=== PATIENT | female | born 1940 | race Caucasian/White ===

== ENCOUNTER → 2016-12-11 | Outpatient (CLI) | payer OTHER ==
[~2016-12-11] VITALS: Ht 162.6 cm; Wt 109.0 kg
[~2016-12-11] MED LIST: AMBIEN 5 MG TABL5 M1 PO; CIPRO250 M1 PO; DIOVAN160 MG PO; DOLOPHINE HCL10 MG PO; FLEXERIL PO; KEFLEX500 MG PO; MEDROLDOSEPACK PO; METHADONE HCL 110 M1 PO; MOBIC15 MG PO; MOBIC7.5 MG PO; NEURONTIN 300300 M1 PO; NOLVADEX10 MG PO; PERCOCET 5-3251 EACH PO; PERCOCET 7.5-31 EACH PO; PERCODAN TABLE1 EACH PO; SYNTHROID175 MCG PO; TESSALON PERLE100 M1 PO; WATER PILL
--- NOTE | ~2016-12-11 | HPC ---
[facility] [place] [address] PAIN MANAGEMENT CONSULTATION Name: ARELY BEATTY Room #: REG [facility].#: [id number] Admission: 12/11/16 Attend Phys: Itz Perry MD Discharge: Date of : 44 Report #: [id number] THIS REPORT FOR: //name// CC: Itz Andre DATE OF SERVICE: 12/11/2016 PRIMARY CARE PHYSICIAN: Kervin Andre MD FOLLOWUP COMPLAINT: "I am still having some pain in my tailbone area." FOLLOWUP HISTORY: The patient is a 76-year-old female who has been followed in the pain clinic in the past because of lumbar radiculopathy. She has undergone epidural steroid injection and gleaned significant benefit from that. She feels that her pain medicines are helpful. She has not fallen since we saw her last. She rates her pain as a 10. She has noted some pain with standing, walking as well as with lying down. She describes it as aching, involves both of her legs, left and right. She denies any changes in bowel or bladder function. She denies any changes in her mentation associated with her medication use. PHYSICAL EXAMINATION: Blood pressure 129/70, pulse 68, respiratory rate 16, room air saturation 100%. The patient has pain and discomfort as described above. She has pain in her low back and legs bilaterally. She describes chronic achy discomfort and rates the intensity as a 10/10 especially when standing, walking and lying down. She notes that the pain in the tailbone area is problematic. She sometimes notes that when she sits on the toilet. IMPRESSION: 1. History of lumbar radiculopathy, improved with an epidural steroid injection at the last visit. 2. Chronic bilateral knee pain. 3. Obesity. RECOMMENDATION: We discussed treatment options with the patient. We will continue with her current medical regimen of oxycodone 5 mg 1 p.o. q.i.d. as needed. Methadone 10 mg b.i.d. Flexeril 10 mg t.i.d. She will call us and may be considered an epidural steroid injection at the next visit. We would like to thank you for letting us participate in her care. We hope she continues to improve. By: [id number] Itz Perry MD /[facility]
[2016-12-11 11:17] VITALS: BP 129/70
== END | disposition home or self-care (01) ==
LOC: PAIN 06:35
DX: M54.16 Radiculopathy, lumbar region (principal); M25.562 Pain in left knee; M25.561 Pain in right knee; E66.9 Obesity, unspecified; Z87.891 Personal history of nicotine dependence

== ENCOUNTER → 2017-03-12 | Outpatient (CLI) | payer OTHER ==
[~2017-03-12] VITALS: Ht 152.4 cm; Wt 103.1 kg
--- NOTE | ~2017-03-12 | HPC ---
[facility] [place] [address] PAIN MANAGEMENT CONSULTATION Name: ARELY BEATTY Room #: REG [facility] Nelly.#: [id number] Admission: 03/12/17 Attend Phys: Itz Perry MD Discharge: Date of : 42 Report #: [id number] THIS REPORT FOR: //name// CC: Itz Andre MD DATE OF SERVICE: 03/12/2017 FOLLOWUP COMPLAINT: Things have been going okay. Here for medication renewal. FOLLOWUP HISTORY: The patient is a 76-year-old female who has been followed in the pain clinic. As you recall, she has significant problems with low back pain. She has found that medical management has been helpful. She has not had any complications from its use. She would like to have her medications refilled. She continues to rate her pain as a 7/10. She notes pain while standing, walking and lying down. She is sitting in a wheelchair when we spoke with her. PHYSICAL EXAMINATION: GENERAL: The patient is in a wheelchair. VITAL SIGNS: Blood pressure 112/69, pulse 74, respiratory rate 14, room air saturation 96%, height 5 feet, weight 227 pounds, BMI is 44. BACK: She continues to have pain and discomfort in her low back area. Has pain radiating down into her legs bilaterally. She has some discomfort in the tailbone area. IMPRESSION: 1. History of lumbar radiculopathy, improved with epidural steroid injection in the past. May consider an injection in the future. 2. Chronic bilateral knee pain. 3. Chronic tailbone pain. 4. Obesity. RECOMMENDATION: We will renew the patient's opioid medications. We again spoke with her regarding the limitations in opioid medication and new guidelines per the CDC. We will continue her current medical regimen. She will call us if she has any problems with it. She will consider an epidural steroid injection in the future. A script for methadone 10 mg 1 p.o. b.i.d. and Percocet 5/325, 120 tablets as well as Flexeril 10 mg 1 p.o. t.i.d. By: [id number] Itz Perry MD /
[2017-03-12 11:48] VITALS: BP 112/69
== END | disposition home or self-care (01) ==
LOC: PAIN 11:11
DX: Z76.0 Encounter for issue of repeat prescription (principal); M54.16 Radiculopathy, lumbar region; G89.29 Other chronic pain; M25.561 Pain in right knee; M25.562 Pain in left knee; M53.3 Sacrococcygeal disorders, not elsewhere classified; E66.09 Other obesity due to excess calories; Z79.891 Long term (current) use of opiate analgesic; Z98.890 Other specified postprocedural states; Z68.41 Body mass index [BMI] 40.0-44.9, adult; Z87.891 Personal history of nicotine dependence; Z88.0 Allergy status to penicillin; Z88.6 Allergy status to analgesic agent; Z88.2 Allergy status to sulfonamides; Z91.041 Radiographic dye allergy status

== ENCOUNTER → 2017-06-18 | Outpatient (CLI) | payer OTHER ==
[~2017-06-18] VITALS: Ht 160 cm; Wt 97.5 kg
[~2017-06-18] MED LIST changes: +NOLVADEX 10MG T10 M1 PO; +VERAPAMIL ER120 M1 PO
--- NOTE | ~2017-06-18 | HPC ---
[facility] [place] [address] [address] [place] [address] PAIN MANAGEMENT CONSULTATION Name: ARELY BEATTY Room #: REG WHIT[facility] Martínez#: [id number] Admission: 06/18/17 Attend Phys: Itz Perry MD Discharge: Date of : 42 Report #: [id number] THIS REPORT FOR: //name// CC: Itz Andre DATE OF SERVICE: 06/18/2017 FOLLOWUP COMPLAINT: Here for an epidural injection. FOLLOWUP HISTORY: The patient is a 76-year-old female who has been followed in the pain clinic. As you recall, she has lumbar radiculopathy. She has been treated on a long-term basis with a complex medication regimen for her chronic pain. She finds that opioids continue to be helpful. She states that she is taking them as prescribed. She states she is having no complications. She has pain, which is radiating down into her low back and down into her legs bilaterally in the L4-L5 distribution. She has undergone epidural steroid injection in the past and gleaned greater than 50% benefit from these. She has returned today for treatment. She rates her pain as an 8/10. PHYSICAL EXAMINATION: Blood pressure 145/64, pulse 60, respiratory rate 16, room air saturation 92%. Height 5 feet 3 inches, weight 215 pounds, BMI is 38. The patient has not fallen since we saw her last. RECOMMENDATION: The patient agrees to proceed. Risks and benefits of the procedure were again reviewed. Possible complications which could include but are not limited to infection, increased muscle soreness, headache, bleeding, spinal headache, nerve trauma were discussed and the patient elects to proceed. PROCEDURE NOTE: The patient was placed in the prone position. Fluoroscopy was used to identify the L4-L5 interspace. This area had been sterilely prepped with Betadine and infiltrated with 0.25% bupivacaine. Total of 80 mg Depo-Medrol, 40 mg triamcinolone and 2 mL of 0.25% bupivacaine was injected. The patient tolerated the procedure well. There were no complications. She remained in the pain clinic for an appropriate amount of time. She will follow up in the future as needed. <ELECTRONICALLY SIGNED> By: Itz Perry MD 07/01/17 0945 [id number] Itz Perry MD /[facility]
[2017-06-18 12:35] VITALS: BP 145/64
== END | disposition home or self-care (01) ==
LOC: PAIN 07:03
DX: M54.16 Radiculopathy, lumbar region (principal); G89.29 Other chronic pain; Z79.891 Long term (current) use of opiate analgesic; Z98.890 Other specified postprocedural states; Z87.891 Personal history of nicotine dependence; Z91.041 Radiographic dye allergy status; Z88.6 Allergy status to analgesic agent; Z88.2 Allergy status to sulfonamides; Z88.0 Allergy status to penicillin

== ENCOUNTER → 2017-09-15 | Outpatient (CLI) | payer OTHER ==
[~2017-09-15] VITALS: Ht 160 cm; Wt 98.3 kg
--- NOTE | ~2017-09-15 | HPC ---
[facility] [place] [address] PAIN MANAGEMENT CONSULTATION Name: ARELY BEATTY Room #: REG [facility] Martínez#: [id number] Admission: 09/15/17 Attend Phys: Itz Perry MD Discharge: Date of : 42 Report #: [id number] THIS REPORT FOR: //name// CC: Itz Andre MD DATE OF SERVICE: 09/15/2017 FOLLOWUP COMPLAINT: Here for medication renewal. FOLLOWUP HISTORY: The patient is a 76-year-old female who has been followed in the pain clinic for a number of years. As you recall, she continues to have pain and discomfort, which is problematic. She has undergone epidural steroid injections and gleaned benefits from these. She returns today indicating that her pain is a 6-7, at this juncture. She would like to have her medications refilled. Notes that she continues to have some pain and discomfort with standing, walking, and lying down. She notes that the pain is in the lower portion of her back and radiates down into both legs bilaterally. She has a chronic pulling sensation in the lower portion of her back, which sometimes is sharp. She feels that the medications that she is taking continue to be helpful. She has had no complications from their use. She states that she is taking them as prescribed. Keeps them in a guarded area. She does not have any problems with constipation nor confusion. Overall, these continue to be helpful and enable her to stay reasonably active. She would like to continue with the medication and has come today for renewal of her medications. ALLERGIES: SULFA, PENICILLIN, IODINE. CURRENT MEDICATIONS: Include oxycodone 5/325 one p.o. q.i.d. as needed, methadone 10 mg 1 p.o. b.i.d., Flexeril 10 mg 1 p.o. t.i.d. as needed, tamoxifen 10 mg daily, verapamil ER 120 mg b.i.d., Ambien 2.5 mg at bedtime, Synthroid 175 mcg daily, Neurontin 300 mg 1 p.o. daily. CLINICAL ASSESSMENT: 1. History of osteoarthritis involving her knees. 2. History of rheumatoid arthritis, not applicable: 3. Height 5 foot 3 inches, weight 216 pounds, BMI is 38. 4. Vital signs: Blood pressure 137/69, pulse 60, respiratory rate 20, room air saturation is 98%. 5. Pain intensity 6-7/10. 6. Fall risk. The patient uses a walker at home. She does monitor and tries to walk as carefully as possible at home. She has not fallen in the last 3 months. 7. The patient is not on a blood thinner. 8. Hypertension. The patient [place] [address] PAIN MANAGEMENT CONSULTATION Name: ARELY BEATTY Room #: REG [facility] Martínez#: [id number] Admission: 09/15/17 Attend Phys: Itz Perry MD Discharge: Date of : 42 Report #: [id number] 9. Opioid therapy greater than 6-week. The patient has a contract signed with pain clinic and only gets her medications from one source. 10. Risk assessment tool is low at 0/3. 11. Functional assessment tool . 12. Recreational drug use. The patient denies use of recreational drug use. Tobacco use: Former tobacco user, does not smoke and has not smoked in many years. Alcohol: The patient might drinks 3-4 alcoholic beverages per week. PHYSICAL EXAMINATION: GENERAL: The patient is a well-developed, somewhat obese white female. Appearance: The patient appears her stated age. Orientation: The patient is alert and oriented x 3. Affect: The patient's affect appears appropriate. HEENT: Normocephalic, atraumatic. Extraocular eye muscles intact. Hearing within normal limits. No nasal complaints. Moist buccal membranes. NECK: Without adenopathy. ABDOMEN: Protuberant. EXTREMITIES: Upper extremities, muscle strength is judged to be 5/5 in the upper extremities. Sensation within normal limits. MUSCULOSKELETAL: Normal alignment. Gait: The patient walks slow with a somewhat antalgic gait. Walks with use of a walker. Low back: The patient has some low back pain. Flexion and extension exacerbates the pain and discomfort in the low back area. Lower extremities, judged to be 5/5 for the major muscle groups. The patient has significant swelling in the lower extremities, which has been chronic over the years. IMPRESSION: 1. Chronic lumbar radiculopathy has improved with epidural steroid injection in the past. 2. Chronic bilateral knee pain. 3. Chronic tailbone pain. 4. Obesity, BMI of 42. 5. The patient rolls in a wheelchair and walks with a walker at home. RECOMMENDATIONS: We discussed treatment options with the patient. Risks and benefits of opioid use was again discussed. We have reviewed the problems with opioid medications in our communities. Number of ____ are having problems with narcotics and become addicted. The patient states that she has taken her medication as prescribed. Keeps her medications in a guarded area. Does not feel that she is having any problems with over sedation or mentation. She feels that her medications are adequately helping with her chronic pain and feels that she would be unable to maintain her current base activity of daily living without their use. We will renew her medications of Percocet 5/325, 120 tablets, Flexeril 10 mg 1 p.o. t.i.d. as well as methadone 1 p.o. b.i.d. A script for these medications have been written. The patient will call us if she [facility] [email or web address] [address] PAIN MANAGEMENT CONSULTATION Name: ARELY BEATTY Room #: REG [facility] Minerva#: [id number] Admission: 09/15/17 Attend Phys: Itz Perry MD Discharge: Date of : 42 Report #: [id number] has any problems with her medications. We would like to thank you for letting us participate in her care. We hope she continues to improve. <ELECTRONICALLY SIGNED> By: Itz Perry MD 10/08/17 0811 [id number] Itz Perry MD /[facility]
[2017-09-15 11:07] VITALS: BP 137/69
== END ==
LOC: PAIN 09-10 14:45
DX: M17.0 Bilateral primary osteoarthritis of knee (principal); R42 Dizziness and giddiness; Z91.81 History of falling

== ENCOUNTER → 2017-12-10 | Outpatient (CLI) | payer OTHER ==
[~2017-12-10] VITALS: Ht 160 cm; Wt 96.2 kg
--- NOTE | ~2017-12-10 | HPC ---
[facility] [address] [address] PAIN MANAGEMENT CONSULTATION Name: ARELY BEATTY Room #: REG [facility] Martínez#: [id number] Admission: 12/10/17 Attend Phys: Itz Perry MD Discharge: Date of : 42 Report #: [id number] THIS REPORT FOR: //name// CC: Itz Andre DATE OF SERVICE: 12/10/2017 FOLLOWUP COMPLAINT: "I fell a few days ago. I had an x-ray and they said that something may have been broken." FOLLOWUP HISTORY: The patient is a 77-year-old female who has been followed in the pain clinic because of chronic pain. The patient states that she fell on her buttocks. It was a hard floor. This was about a month ago. States that her primary care physician did an x-ray and there was possibility of a fracture noted. Overall, things have gotten somewhat better, but continued to be problematic. The patient continues to have some pain and discomfort, which radiates down into her buttocks. She has had fractured tailbone in the past. Denies any new bowel or bladder dysfunction. She notes that pain can be exacerbated by walking, standing, lying down. Medications and repositioning can be efficacious. The patient keeps her medications in a confined area. Feels that they are continuing to be helpful. It is mindful of the media. Review of opioids, their ability to cause addiction and their ability to become less effective because of tolerance. She feels that things are going reasonably well and would like to continue with her medications. She keeps them in a guarded area. No new problems with bowel or bladder function. ALLERGIES: SULFA, PENICILLIN, IODINE. CURRENT MEDICATIONS: Oxycodone 5/325 one p.o. q.i.d., methadone 10 mg b.i.d., Flexeril 10 mg p.o. t.i.d., tamoxifen 10 mg daily, verapamil ER 120 mg b.i.d., Ambien 2.5 mg at bedtime, Synthroid 1.75 mcg, Neurontin 300 mg p.o. daily. CLINICAL ASSESSMENT: 1. History of osteoarthritis involving her knees. 2. History of rheumatoid arthritis is not problematic. 3. Height 5 feet 3 inches, weight 212 pounds, BMI is 37.6. 4. Vital signs: Blood pressure 122/72, pulse 66, respiratory rate 16, room air saturation 98%. 5. Pain intensity 8/10. 6. Fall risk. The patient has fallen in the last 3 months and has been seen by her primary care physician. 7. Blood thinner. The patient is not on a blood thinning agent. 8. History of hypertension. The patient is being treated for hypertension. 9. Opioid therapy greater than 6 weeks. The patient is on an opioid contract and refused her medications [place] [address] PAIN MANAGEMENT CONSULTATION Name: ARELY BEATTY Room #: REG [facility] Martínez#: [id number] Admission: 12/10/17 Attend Phys: Itz Perry MD Discharge: Date of : 42 Report #: [id number] 10. Low risk assessment. 11. Functional assessment tool . 12. Functional or recreational drug use. The patient denies use of recreational drugs. 13. Tobacco: The patient denies use of tobacco. 14. Alcohol: The patient denies use of alcoholic beverages. PHYSICAL EXAMINATION: GENERAL: The patient is a well-developed, somewhat obese white female. She appears her stated age. She is alert and oriented. Speech is fluent. Affect, patient's affect appears appropriate. HEENT: Normocephalic, atraumatic. Extraocular eye muscles intact. Hearing was within normal limits. No nasal complaints. Mucous membranes are moist. NECK: Without adenopathy. CHEST: Clear to auscultation without rhonchi or rales. ABDOMEN: Protuberant. EXTREMITIES: Upper extremities. Muscle strength is judged to be 5/5 in the upper extremities. Sensation is within normal limits without deficit. MUSCULOSKELETAL: Without significant kyphosis, lordosis, or scoliosis. The patient is in a wheelchair. Walks at home with use of a walker. Complains of low back pain. Flexion and extension, left and right lateral bending can cause increased back and low buttocks area discomfort. The patient has some areas in the lower portion of her back near the sacrum where she feels pain and discomfort since her fall. IMPRESSION: 1. Chronic lumbar radicular pain improved after epidural steroid injection in the past. 2. Chronic bilateral knee pain. 3. Chronic tailbone pain -- fell to the floor and possible fracture per her report from the primary care physician. 4. Obesity, BMI of 37.6. 5. Wheelchair use. The patient uses a wheelchair and walks with a walker at home. RECOMMENDATIONS: We discussed treatment options with the patient. We will renew her medications. Risks and benefits of opioid medications again were discussed. The patient feels that they are helpful and enables her to engage in activities, she would not be able to without their use. A script for methadone 10 mg 1 p.o. b.i.d. has been written as well as cyclobenzaprine 10 mg 1 p.o. t.i.d. for spasms, Percocet 5/325 one p.o. or q.i.d. as needed. We would like [facility] [address] [place] [address] PAIN MANAGEMENT CONSULTATION Name: ARELY BEATTY Leonardo Room #: REG [facility] Martínez#: [id number] Admission: 12/10/17 Attend Phys: Itz Perry MD Discharge: Date of : 42 Report #: [id number] to thank you for letting us participate in her care. We hope she continues to improve. By: [id number] Itz Perry MD /nt
[2017-12-10 10:12] VITALS: BP 122/72
== END ==
LOC: PAIN 07:30
DX: M54.16 Radiculopathy, lumbar region (principal); G89.29 Other chronic pain; M25.561 Pain in right knee; M25.562 Pain in left knee; M53.3 Sacrococcygeal disorders, not elsewhere classified; E66.9 Obesity, unspecified; Z68.37 Body mass index [BMI] 37.0-37.9, adult; Z88.2 Allergy status to sulfonamides; Z88.0 Allergy status to penicillin; Z91.041 Radiographic dye allergy status

== ENCOUNTER → 2018-06-08 | Outpatient (CLI) | payer OTHER ==
[~2018-06-08] VITALS: Ht 162.6 cm; Wt 99.3 kg
--- NOTE | ~2018-06-08 | HPC ---
[facility] [address] [place] [address] PAIN MANAGEMENT CONSULTATION Name: ARELY BEATTY Leonardo Room #: REG WHITLEY Soliz#: [id number] Admission: 06/08/18 Attend Phys: Nichole Liao Discharge: Date of : 42 Report #: [id number] THIS REPORT FOR: //name// CC: Nichole Liao Kervin Andre DATE OF SERVICE: 06/08/2018 FOLLOWUP COMPLAINT: Low back pain with pain radiating down her legs, here for medication refill today. HISTORY OF PRESENT ILLNESS: This patient is a 77-year-old female who has been followed in the pain clinic for several years by Dr. Joaquin Perry. She has chronic low back pain. She tells me today that her pain has been increasing in the morning in her lower back, especially upon arising out of bed in the morning. She tells me it takes her a few feet of walking before it kind of eases up. She rates her pain today at 8/10, worse with standing and walking. She tells me also that she has been having some increase in her peripheral neuropathy feeling some shocks in her leg at various places and some increased burning in her feet. She tells me also that she is getting a lymphedema machine for the swelling in her legs. She does wear compression hose currently. She would like a refill of her methadone and her Percocet, which she thinks are beneficial having no problems with meditation or constipation with these medications. ALLERGIES: IODINE, CODEINE, SULFA, AND PENICILLIN. CURRENT LIST OF MEDICATIONS: Percocet 5/325 up to 4 times a day, methadone 10 mg twice a day, Flexeril 10 mg up to 3 times a day as needed, tamoxifen 10 mg daily, verapamil 120 mg twice a day, Ambien 2.5 mg at bedtime, Synthroid 175 mcg daily, gabapentin 300 mg twice a day. PQRS: 1. She has a history of osteoarthritis in her knees and legs and she has a history of rheumatoid arthritis, but is not being treated for currently. 2. Height is 5 feet 4 inches, her weight is 219, her BMI is 37.6. Vital signs: Blood pressure 152/71, pulse is 69, respirations 16, oxygen sat is 18. Her pain score is 8/10 today. 3. Fall risk, has no dizziness. Does need some help with walking and standing. She uses a walker and occasionally a wheelchair, but she has not fallen in the last 3 months. 4. She does not take any blood thinners, but does take medicines for hypertension. 5. Her opioid therapy is greater than 6 weeks; therefore, an opioid signed contract is on the chart. 6. Her risk assessment tool is low and her functional assessment is 16/70. [address] [address] PAIN MANAGEMENT CONSULTATION Name: ARELY BEATTY Leonardo Room #: REG CLLaz Soliz#: [id number] Admission: 06/08/18 Attend Phys: Nichole Liao Discharge: Date of : 42 Report #: [id number] 7. Recreational drug use. She denies, is a former smoker and occasionally drinks 2 alcoholic beverages a month. We did check the patient's [place], [place] prescription monitoring system. The patient seems to be filling appropriately from Dr. Jhony Perry on a monthly basis with no aberrant behavior noted. The patient tells me she safeguards all of her medications. PHYSICAL EXAMINATION: GENERAL: This patient is well-developed, white female. She is obese. She is here with a walker today. Her speech is fluent. Her affect is appropriate. HEENT: Normocephalic, atraumatic. Extraocular eye muscles are intact. Hearing is within normal limits. Mucous membranes are moist. NECK: Without adenopathy or JVD. ABDOMEN: Protuberant without abdominal pain. EXTREMITIES: Upper extremity strength judged to be 5/5 for all major muscle groups. Sensation is within normal limits in her upper extremities. MUSCULOSKELETAL: Without significant kyphosis, scoliosis or lordosis. She complains of low back pain and sharp tingly burning pain in her feet. She does have significant lymphedema present in her lower extremities, worse in the left than the right. IMPRESSION: 1. Chronic lumbar radicular pain. 2. Chronic bilateral knee pain. 3. Chronic tailbone pain. 4. Obesity. Body mass index is 37.6. We reviewed the fact that opiate medications are being used to provide analgesia adequate to support activities of daily living, not attempting to achieve a specific pain score on the 0-10 Visual Analog Scale. The current opiate medications are providing sufficient analgesia to allow the patient to participate in activities of daily living. The patient is not exhibiting any aberrant behavior suggestive of drug diversion. The patient is not having any adverse reactions to medications. The patient is not suffering from daytime somnolence or mental acuity changes. The patient is managing opiate-induced constipation with appropriate [id number]-hzm-phdozbm agents and dietary considerations. The patient was counseled on concern for caution with operating a motor vehicle while using opiate medications. A physical exam was performed and the patient's functional status was evaluated. All patients with back pain were advised against the bed rest greater than 4 days and were advised to return to normal activities. Pain score assessment was noted and the treatment plan was reviewed with the patient. All current medications, both prescribed and OTC were reviewed and reconciled on the electronic medical record. Tobacco screening was accomplished and smoking [facility] [address] [place] [address] PAIN MANAGEMENT CONSULTATION Name: ARELY BEATTY Room #: REG [facility]#: [id number] Admission: 06/08/18 Attend Phys: Nichole Liao Discharge: Date of : 42 Report #: [id number] cessation was advised when indicated. BMI was noted and diet/exercise modification was recommended for all patients following outside normal parameters. I reviewed with the patient today their responsibilities to safeguard prescription medications, reviewed their responsibility to utilize medications only as prescribed by the physician. They are to seek and receive pain medications only from 1 physician group ( [facility]). They are to use 1 pharmacy and keep the clinic informed if they change pharmacies. Their responsibilities include making followup visits in a timely fashion and to avoid abrupt discontinuation of medication usage. Their responsibilities further include bringing their medications (bottles from the pharmacy with residual pills) to the visit for possible confirmation of pill counts and the patient understands it is their responsibility to submit to random drug screens to ensure both that the medications prescribed are present, and that no other controlled substances are present. All prescriptions provided today were generated electronically. PLAN: 1. We discussed treatment options with the patient today. We will continue her current medications of methadone 10 mg twice daily, scripts were given for #60 for today, 4-week and 8-week and oxycodone 5/325, #120 for today, 4-week and 8-week release. The patient tells me that these medications are very helpful, we did in controlling her pain. We did talk about the CDC guidelines in great depth. She said Dr. Perry had talked to her about that in the past and he told her that she is at a level that we will not decrease or I did inform her her MME is 110, which the CDC guidelines are 90 milliequivalents of morphine or below. We will closely monitor her, but continue her current dosage. Since she has been showing benefits from this dose, we will monitor her on every 3-month basis and sooner if need be for her medications. 2. The patient does complain of increased low tailbone pain and increasing neuropathy in her feet. According to the records, it looks like she has had a lumbar epidural steroid injection at least 1 year ago; therefore, we discussed repeating that to see if this would help calm down some of this increasing pain. The patient was agreeable with this plan and will schedule an appointment in the near future with Dr. Perry. 3. We did also talk about the patient is on gabapentin 300 mg twice a day if we find that the epidural was not as beneficial as it has been in the past. We may consider increasing her gabapentin for her neuropathy pain in the future. 4. The patient is seen in collaboration with Dr. Joaquin Perry today. <ELECTRONICALLY SIGNED> By: Nichole Liao 06/09/18 0831 [id number] Nichole Liao /baltazar
[2018-06-08 12:39] VITALS: BP 152/71
== END ==
LOC: PAIN 05:54
DX: M54.16 Radiculopathy, lumbar region (principal); M25.561 Pain in right knee; M25.562 Pain in left knee; E66.9 Obesity, unspecified; G89.29 Other chronic pain; M53.3 Sacrococcygeal disorders, not elsewhere classified; Z79.899 Other long term (current) drug therapy

== ENCOUNTER → 2018-06-24 | Outpatient (CLI) | payer OTHER ==
[~2018-06-24] VITALS: Ht 162.6 cm; Wt 98.2 kg
--- NOTE | ~2018-06-24 | HPC ---
[facility] [place] [address] PAIN MANAGEMENT CONSULTATION Name: ARELY BEATTY Room #: REG [facility] Martínez#: [id number] Admission: 06/24/18 Attend Phys: Itz Perry MD Discharge: Date of : 42 Report #: [id number] THIS REPORT FOR: //name// CC: Itz Andre DATE OF SERVICE: 06/24/2018 CHIEF COMPLAINT: Here for an epidural injection. FOLLOWUP HISTORY: The patient is a 77-year-old female who has been followed in the pain clinic because of chronic pain involving her back and is treated with complex medical management, using opioid medications. The patient has history of lumbar radiculopathy. At this point, she has returned to the pain clinic for an epidural steroid injection. She is having pain and discomfort in the low back area with pain that is radiating down into the lumbar area in the L5-S1 distribution. It is problematic on both sides. She rates it as an 8-9/10. Standing, walking, and lying down can exacerbate the pain. Notes that repositioning and use of her current medications are helpful. She finds that her medications of Percocet and methadone are beneficial. She is keeping her medications in a guarded area. She has returned to the pain clinic with the desire of undergoing an epidural steroid injection, which we had discussed in the past. ALLERGIES: PENICILLIN and SULFA. MEDICATIONS: Oxycodone 5/325 one p.o. q.i.d., methadone 10 mg b.i.d., Flexeril 10 mg t.i.d., tamoxifen 10 mg, verapamil ER 120 mg b.i.d., Ambien 2.5 mg at bedtime, Synthroid 175 mcg, Neurontin 300 mg b.i.d. PAIN CLINIC ASSESSMENT/PQRS: 1. History of osteoarthritis involving her knees. The patient is not being treated for rheumatoid arthritis. 2. Height 5 feet 3 inches, weight 216 pounds, BMI is 37.1. The patient states that she has lost about 41 pounds. 3. Vital Signs: Blood pressure 142/75, pulse 69, respiratory rate 18, room air saturation 97%. 4. Pain intensity 8-03/21. 5. Fall risk. The patient has not fallen in the last 3 months. 6. Blood thinner. The patient is not on a blood thinning medication. 7. Hypertension. The patient is being treated for hypertension. 8. Opioids greater than 6 weeks. The patient is receiving her medications from 1 source, the pain clinic. 9. Risk assessment tool, low 0/3 for opioid use. 10. [place] [address] PAIN MANAGEMENT CONSULTATION Name: ARELY BEATTY Leonardo Room #: REG CLLaz Soliz#: [id number] Admission: 06/24/18 Attend Phys: Itz Perry MD Discharge: Date of : 42 Report #: [id number] 11. Recreational drugs. The patient denies use of recreational drugs. 12. Tobacco: The patient is a former tobacco user. 13. Alcohol: The patient infrequently uses alcoholic beverages. PHYSICAL EXAMINATION: GENERAL: The patient is a well-developed, well-nourished, somewhat obese white female, appears her stated age. She is alert and oriented x 3. Affect is appropriate. Speech is fluent. The patient is accompanied by her daughter. HEENT: Normocephalic, atraumatic. Extraocular eye muscles intact. Sclerae nonicteric. Mucous membranes are moist. Hearing is within normal limits. NECK: Without adenopathy or JVD. CHEST: Clear to auscultation without rhonchi or rales. ABDOMEN: Protuberant without abdominal pain. Bowel sounds present. EXTREMITIES: Upper extremity muscle strength is judged to be 5-/5 for the major muscle groups. In the lower extremities it is rated at 5-/5 for the lower extremity. MUSCULOSKELETAL: Without significant scoliosis, kyphosis, or lordosis: The patient is in a wheelchair. Need some assistance in going from the chair to get on the examination table. The patient has pain and discomfort and she described the posterior portion of her leg and radiating down in the L4-L5 dermatomal distribution today, which is most problematic. IMPRESSION: 1. Chronic lumbar radiculopathy in the L4-L5 dermatomal distribution. 2. Chronic bilateral knee pain. 3. Chronic tailbone pain. The patient fell on the floor and fractured this, as per her report some time ago. 4. Obesity, body mass index is 37.1. 5. Wheelchair use. The patient ambulates with use of wheelchair. Uses a walker when she is at home. RECOMMENDATIONS: We have discussed the risks and benefits of an epidural steroid injection. They include but are not limited to infection, increased muscle soreness, headache, bleeding, worsening of pain, no improvement in pain, paralysis, and the patient elects to proceed. PROCEDURE NOTE: The patient was taken to the procedure area. She was assisted in getting on the examination table. Her back was sterilely prepped with a Betadine solution. Fluoroscopy using anterior, posterior as well as lateral viewing were implemented. The patient's back was sterilely prepped with a Betadine solution. It was allowed to dry. A 25-gauge needle was then advanced in the midline area and 0.25% bupivacaine was infiltrated. A midline approach with a right lateral direction was used at the L4-L5 interspace. A total of 80 mg Depo-Medrol, 40 mg triamcinolone and 2 mL of 0.25% bupivacaine was injected. The patient tolerated the procedure well. Total of 11 seconds fluoroscopy time was used. The patient's pain was 5-6 at the time of discharge. She will follow [facility] [address] [address] PAIN MANAGEMENT CONSULTATION Name: ARELY BEATTY Room #: [facility]#: [id number] Admission: 06/24/18 Attend Phys: Itz Perry MD Discharge: Date of : 42 Report #: [id number] up in the future as needed. We would like to thank you for letting us participate in her care. We hope she continues to improve. By: [id number] Itz Perry MD /IVORY
[2018-06-24 13:08] VITALS: BP 142/57
== END | disposition home or self-care (01) ==
LOC: PAIN 06-15 12:05
DX: M54.16 Radiculopathy, lumbar region (principal); G89.29 Other chronic pain; M53.3 Sacrococcygeal disorders, not elsewhere classified; E66.09 Other obesity due to excess calories; Z68.37 Body mass index [BMI] 37.0-37.9, adult; Z87.891 Personal history of nicotine dependence; Z91.040 Latex allergy status; Z88.2 Allergy status to sulfonamides; Z88.0 Allergy status to penicillin; Z79.899 Other long term (current) drug therapy

== ENCOUNTER → 2018-09-09 | Outpatient (CLI) | payer OTHER ==
[2018-09-09 12:52] VITALS: BP 137/73
--- NOTE | 2018-09-09 12:54 | NUR ---
Pain Clinic Assessment: 1. History of Osteoarthritis: KNEE LEGS History of Rheumatoid Arthritis: Not Applicable 2. Height: 5 ft. 4 in. 162.6 cm. Weight: lb. oz. kg. Patient's BMI: 3. Vital Signs: BP: 137/73 Pulse: 65 Resp: 16 Temp: 02 Sat: 100 ECG Mon: 4. Pain Intensity: 8 5. Fall Risk: Dizziness: N Needs help standing or walking: N Fallen in the last 3 months: Y Fall risk comments: 6. Patient on Blood Thinner: None 7. History of Hypertension: Y 8. Opioid Therapy greater than 6 weeks: Y Opiate Contract Signed: 03/11/16 9. Risk Assessment Tool Provided: LOW RISK 0/3 10. Functional Assessment Tool: 11. Recreational Drug Use: Never Drug Type: Tobacco Use: Former Smoker Tobacco Type: Amount or Packs/day: How Many Years: Alcohol Use: Yes Frequency: Quant:
== END ==
LOC: PAIN 09-07 07:42
DX: M54.5 Low back pain (principal); G89.29 Other chronic pain; M79.605 Pain in left leg; M79.604 Pain in right leg; Z79.899 Other long term (current) drug therapy; Z87.891 Personal history of nicotine dependence; Z72.89 Other problems related to lifestyle

== ENCOUNTER → 2018-12-07 | Outpatient (CLI) | payer OTHER ==
[~2018-12-07] VITALS: Ht 157.5 cm; Wt 99.8 kg
[2018-12-07 12:52] VITALS: BP 126/64
--- NOTE | 2018-12-07 12:55 | NUR ---
Pain Clinic Assessment: 1. History of Osteoarthritis: KNEE LEGS History of Rheumatoid Arthritis: Not Applicable 2. Height: 5 ft. 2 in. 157.5 cm. Weight: 220.0 lb. oz. 99.792 kg. Patient's BMI: 40.2 3. Vital Signs: BP: 126/64 Pulse: 65 Resp: 15 Temp: 02 Sat: 100 ECG Mon: 4. Pain Intensity: 8 5. Fall Risk: Dizziness: Y Needs help standing or walking: Y Fallen in the last 3 months: N Fall risk comments: USES WALKER 6. Patient on Blood Thinner: None 7. History of Hypertension: Y 8. Opioid Therapy greater than 6 weeks: Y Opiate Contract Signed: 03/11/16 9. Risk Assessment Tool Provided: LOW RISK 0/3 10. Functional Assessment Tool: 11. Recreational Drug Use: Never Drug Type: Tobacco Use: Former Smoker Tobacco Type: Amount or Packs/day: How Many Years: Alcohol Use: Yes Frequency: Weekly Quant: 1-2 A WEEK
--- NOTE | 2018-12-08 09:04 | HPC ---
[facility] [address] [address] PAIN MANAGEMENT CONSULTATION Name: ARELY BEATTY Room #: REG [facility] Nelly.#: [id number] Admission: 12/07/18 ������������������ Attend Phys: Nichole Liao Discharge: ������������������ Date of : 42 Report #: [id number] THIS REPORT FOR: //name// CC: Nichole Liao Kervin Andre DATE OF SERVICE: 12/07/2018 CHIEF COMPLAINT: Low back pain with pain radiating down her legs. HISTORY OF PRESENT ILLNESS: This is a very pleasant 78-year-old female, who returns to the pain clinic today for her ongoing chronic back pain. She has been treated by Dr. Joaquin Perry for several years with medication management as well as epidural injections. She tells me that her medications are very helpful, though she rates her pain an 8/10 today. She tells me she forgot to take her morning medications. She was in a hurry to get to her appointment. She has low back pain that radiates down bilateral legs to her ankles. It is worse with standing and walking but the medication and repositioning are very helpful. It is a sharp, achy pain. She denies any problems with constipation or daytime sleepiness. She tells me that the pain medicine enables her to get around and function and even go dancing. She would like a refill of them today. ALLERGIES: PENICILLIN, CODEINE, IODINE and SULFA. MEDICATIONS: Percocet 5/325 q.i.d. p.r.n., methadone 10 mg b.i.d., Flexeril 10 mg at bedtime, tamoxifen 10 mg daily, verapamil 125 mg b.i.d., Ambien 2.5 mg at bedtime, Synthroid 175 mcg daily and gabapentin 300 mg daily. PQRS: 1. She has history of osteoarthritis involving her knee. She is not being treated for rheumatoid arthritis. 2. Height is 5 feet 2 inches, weight is 220 and BMI is 40. 3. VITAL SIGNS: Blood signs 126/64, pulse is 65, respirations 15 and oxygen sat is 100. 4. Pain score is 8/10. 5. Fall risk, she complains of dizziness, does need help with walking and standing. She is in a wheelchair today, but she uses a walker as well. She has not fallen in the last 3 months. 6. The patient is not on any blood thinners. She does take medicine for hypertension. 7. Opioid therapy is greater than 6 weeks; therefore, an opioid signed contract is on the chart. 8. Risk assessment tool is low. Functional assessment . 9. Recreational drug use, she denies. She is a former smoker and does drink alcohol about 1-2 a week[address] [address] PAIN MANAGEMENT CONSULTATION Name: ROGERIOARELY Room #: REG [facility] Martínez#: [id number] Admission: 12/07/18 ������������������ Attend Phys: Nichole Liao Discharge: ������������������ Date of : 42 Report #: [id number] We did check the prescription monitoring system. The patient filling appropriately for her medications in a timely fashion. She tells me she does safeguard her medications at all times. PHYSICAL EXAMINATION: GENERAL: This is a pleasant, well-developed, well-nourished, obese white female who appears her stated age. She is placing her pain score today at 8/10. She is alert and orientated and her speech is fluent. HEENT: Normocephalic and atraumatic. Extraocular eye muscles are intact. Mucous membranes are moist. NECK: Without adenopathy or JVD. EXTREMITIES: Upper extremity strength judged to be 5/5 for major muscle groups in her upper extremities and lower extremity strength judged to be 4/5 in her lower extremities. The patient is without significant kyphosis, scoliosis or lordosis. She is in a wheelchair and requires assistance with moving from the wheelchair to standing. She also uses a walker. IMPRESSION: 1. Chronic lumbar radiculopathy following the L4-L5 dermatomal distribution. 2. Chronic bilateral knee pain. 3. Chronic tailbone pain. 4. Obesity. 5. Complex medical management under terms of written opioid agreement. We reviewed the fact that opiate medications are being used to provide analgesia adequate to support activities of daily living, not attempting to achieve a specific pain score on the 0-10 Visual Analog Scale. The current opiate medications are providing sufficient analgesia to allow the patient to participate in activities of daily living. The patient is not exhibiting any aberrant behavior suggestive of drug diversion. The patient is not having any adverse reactions to medications. The patient is not suffering from daytime somnolence or mental acuity changes. The patient is managing opiate-induced constipation with appropriate eaux-kfs-lxemcut agents and dietary considerations. The patient was counseled on concern for caution with operating a motor vehicle while using opiate medications. A physical exam was performed and the patient's functional status was evaluated. All patients with back pain were advised against the bed rest greater than 4 days and were advised to return to normal activities. Pain score assessment was noted and the treatment plan was reviewed with the patient. All current medications, both prescribed and OTC were reviewed and reconciled on the electronic medical record. Tobacco screening was accomplished and smoking cessation was advised when indicated. BMI was noted and diet/exercise modification was recommended for all patients following outside normal parameters. [address] [place] [address] PAIN MANAGEMENT CONSULTATION Name: ARELY BEATTY Room #: REG [facility]..#: [id number] Admission: 12/07/18 ������������������ Attend Phys: Nichole FRANCHESKA Liao Discharge: ������������������ Date of : 42 Report #: [id number] I reviewed with the patient today their responsibilities to safeguard prescription medications, reviewed their responsibility to utilize medications only as prescribed by the physician. They are to seek and receive pain medications only from 1 physician group ( [facility]). They are to use 1 pharmacy and keep the clinic informed if they change pharmacies. Their responsibilities include making followup visits in a timely fashion and to avoid abrupt discontinuation of medication usage. Their responsibilities further include bringing their medications (bottles from the pharmacy with residual pills) to the visit for possible confirmation of pill counts and the patient understands it is their responsibility to submit to random drug screens to ensure both that the medications prescribed are present, and that no other controlled substances are present. All prescriptions provided today were generated electronically. PLAN: 1. We discussed treatment options with the patient today. The patient feels that the medication use is very beneficial. She does fall in the morphine milliequivalent of 90 MME, which is on the high end of the CDC guidelines. The patient has been able to function and do quite well on this current dose for quite a while. She does engage in regular activities and does not feel overmedicated. Scripts given today for her methadone 10 mg #60 for today, 4 and 8-week release and Percocet 5/325, #120 for today, 4 and 8-week release. 2. Dr. Jhony Perry did see the patient as well as collaborated care today. The patient will follow up with us in 3 months' time. ��������������������������������������������� <ELECTRONICALLY SIGNED> ���������������������������������������� By: Nichole Liao ��������������������������������������������� 12/08/18 0904 [id number] Nichole Liao /nt
== END ==
LOC: PAIN 06:50
DX: M54.16 Radiculopathy, lumbar region (principal); M25.561 Pain in right knee; M25.562 Pain in left knee; G89.29 Other chronic pain; E66.9 Obesity, unspecified; Z88.2 Allergy status to sulfonamides; Z88.5 Allergy status to narcotic agent; Z88.0 Allergy status to penicillin

== ENCOUNTER → 2019-03-03 | Outpatient (CLI) | payer OTHER ==
[~2019-03-03] VITALS: Ht 157.5 cm; Wt 99.3 kg
[~2019-03-03] MED LIST changes: +SYNTHROID150 MCG PO; -SYNTHROID175 MCG PO
--- NOTE | ~2019-03-03 | HPC ---
[facility] [place] [address] PAIN MANAGEMENT CONSULTATION Name: ARELY BEATTY Room #: REG WHITLEY Martínez#: [id number] Admission: 03/03/19 Attend Phys: Itz Perry MD Discharge: Date of : 44 Report #: [id number] THIS REPORT FOR: //name// CC: Itz Andre DATE OF SERVICE: 03/03/2019 CHIEF COMPLAINT: "Here for medication renewal and my daughter, Marely ." HISTORY: The patient is a 78-year-old female who has been followed in the pain clinic for a number of years. She suffers from chronic back pain as well as chronic pain in the low back area. She has undergone epidural steroid injections and found them beneficial. At this juncture, she is having pain, which continues to be problematic. She feels that her medications are helpful. The patient is still quite shaken by the of her daughter. Daughter had been on dialysis and had a pulmonary history with significant amount of smoking. She was hospitalized and later . There has been some problem with her family dynamics. Her grandchildren have not been receptive to her. This has been quite troubling for her. ALLERGIES: PENICILLIN, SULFA. CURRENT MEDICATIONS: Oxycodone 5 mg 1 p.o. q.i.d., methadone 10 mg b.i.d., Flexeril 10 mg t.i.d., tamoxifen 10 mg, verapamil ER 120 mg b.i.d., Ambien 2.5 mg at bedtime, Synthroid 175 mcg, Neurontin 300 mg b.i.d. PAIN CLINIC ASSESSMENT AND PQRS: 1. The patient has some pain and discomfort involving her knees. She is not being treated for rheumatoid arthritis. 2. Height was 5 feet 2 inches, weight 219 pounds, BMI is 40. 3. Vital signs: Blood pressure 106/67, heart rate is 63, respiratory rate 16, room air saturation 99%. 4. Pain intensity 03/21. 5. Fall history: The patient has not fallen in the last 3 months. She does use a walker. 6. Blood thinner. The patient is not on a blood thinning medication. 7. Hypertension. The patient is being treated for hypertension. 8. Opioids greater than 6 weeks. The patient receives medication from the pain clinic and takes her medication as directed. 9. Risk assessment tool, low for opioid use. 10. Functional assessment tool . 11. Recreational drug use. The patient denies. 12. Tobacco: The patient is a former smoker. 13. Alcohol: The patient rarely drinks alcoholic beverages. [address] [address] PAIN MANAGEMENT CONSULTATION Name: ARELY BEATTY Room #: REG [facility]#: [id number] Admission: 03/03/19 Attend Phys: Itz Perry MD Discharge: Date of : 44 Report #: [id number] PHYSICAL EXAMINATION: GENERAL: The patient is a well-developed, somewhat obese white female. Appears her stated age. She is alert and oriented x 3. Her affect is one of depression given that her daughter recently. Speech is fluent. HEENT: Normocephalic, atraumatic. Extraocular eye muscles intact. Sclerae nonicteric. Mucous membranes are moist. NECK: Without adenopathy or JVD. CHEST: Clear to auscultation. ABDOMEN: Protuberant. Bowel sounds present. EXTREMITIES: Upper extremity muscle strength judged to be 5-/5 for the major muscle groups in the upper extremity. Lower extremity muscle strength 4+/5 in lower extremity. MUSCULOSKELETAL: The patient is without significant scoliosis, kyphosis or lordosis. The patient is in a wheelchair, requires assistance in moving in her wheelchair chair from a sitting to a standing position. IMPRESSION: 1. Chronic pain in the lumbar area, L4-L5 dermatomal distribution. 2. Depression secondary to loss of her daughter who recently. 3. Tumultuous family dynamics with her grandchildren. 4. Chronic tailbone pain. 5. Obesity. 6. Difficulty ambulating and uses a wheelchair. RECOMMENDATIONS: We discussed treatment options with the patient. At this juncture, there are no words to say to blunt the grief she is feeling with loss of her daughter. We will continue with her current medications. Hopefully, she and her grandchildren will mend their disagreements. A script for her medications of Percocet 5 mg 1 p.o. q.i.d. have been written. The patient will also continue with methadone 10 mg 1 p.o. b.i.d. Cyclobenzaprine has been rewritten. She will call us if she has any concerns. We would like to thank you for letting us participate in her care. We will continue with helping control her pain with complex medication management using opioids. By: [id number] Itz Perry MD /IVORY
[2019-03-03 13:32] VITALS: BP 106/67
--- NOTE | 2019-03-03 13:40 | NUR ---
Pain Clinic Assessment: 1. History of Osteoarthritis: KNEE LEGS History of Rheumatoid Arthritis: Not Applicable 2. Height: 5 ft. 2 in. 157.5 cm. Weight: 219.0 lb. oz. 99.338 kg. Patient's BMI: 40.0 3. Vital Signs: BP: 106/67 Pulse: 63 Resp: 16 Temp: 02 Sat: 99 ECG Mon: 4. Pain Intensity: 9 5. Fall Risk: Dizziness: N Needs help standing or walking: Y Fallen in the last 3 months: N Fall risk comments: uses walker 6. Patient on Blood Thinner: None 7. History of Hypertension: Y 8. Opioid Therapy greater than 6 weeks: Y Opiate Contract Signed: 03/11/16 9. Risk Assessment Tool Provided: LOW RISK 0/3 10. Functional Assessment Tool: 11. Recreational Drug Use: Never Drug Type: Tobacco Use: Former Smoker Tobacco Type: Amount or Packs/day: How Many Years: Alcohol Use: Yes Frequency: Monthly Quant:
== END ==
LOC: PAIN 06:56
DX: M54.5 Low back pain (principal); F32.9 Major depressive disorder, single episode, unspecified; E66.9 Obesity, unspecified; G89.29 Other chronic pain; Z88.2 Allergy status to sulfonamides; Z88.0 Allergy status to penicillin; Z79.899 Other long term (current) drug therapy

== ENCOUNTER → 2019-06-07 | Outpatient (CLI) | payer OTHER ==
[~2019-06-07] VITALS: Ht 157.5 cm; Wt 96.8 kg
[~2019-06-07] MED LIST changes: +CYCLOBENZAPRINE10 MG PO
[2019-06-07 11:11] VITALS: BP 136/75
--- NOTE | 2019-06-07 11:29 | NUR ---
Pain Clinic Assessment: 1. History of Osteoarthritis: KNEE LEGS History of Rheumatoid Arthritis: Not Applicable 2. Height: 5 ft. 2 in. 157.5 cm. Weight: 213.4 lb. oz. 96.798 kg. Patient's BMI: 39.0 3. Vital Signs: BP: 136/75 Pulse: 65 Resp: 20 Temp: 02 Sat: 100 ECG Mon: 4. Pain Intensity: 8 5. Fall Risk: Dizziness: N Needs help standing or walking: Y Fallen in the last 3 months: N Fall risk comments: uses walker 6. Patient on Blood Thinner: None 7. History of Hypertension: Y 8. Opioid Therapy greater than 6 weeks: Y Opiate Contract Signed: 03/11/16 9. Risk Assessment Tool Provided: LOW RISK 0/3 10. Functional Assessment Tool: 11. Recreational Drug Use: Never Drug Type: Tobacco Use: Former Smoker Tobacco Type: Amount or Packs/day: How Many Years: Alcohol Use: Yes Frequency: Weekly Quant: 2 DRINKS
--- NOTE | 2019-06-07 13:44 | HPC ---
[facility] [address] [place] [address] PAIN MANAGEMENT CONSULTATION Name: ARELY BEATTY Room #: REG Laz Soliz#: [id number] Admission: 06/07/19 Attend Phys: Nichole Liao Discharge: Date of : 44 Report #: [id number] THIS REPORT FOR: //name// CC: Nichole Liao Kervin Andre DATE OF SERVICE: 06/07/2019 CHIEF COMPLAINT: Chronic back pain. HISTORY OF PRESENT ILLNESS: This is a 78-year-old female who has a longstanding history of [employer] in the pain clinic for her chronic low back pain that does radiate into her bilateral legs. She has been on medication management for significant amount of several years with occasional epidural steroid injections that have been beneficial in controlling her pain. Today, she is here present for refills of these medications, the methadone and Percocet, which she finds very beneficial. She denies any problems with constipation or daytime sleepiness as a result of these medications. She does report her pain of an 8/10 today. She had a flat tire on the way to her visit, which did increase her pain score. She also reports pain is increased with standing and walking, but better with medication as well as lying down. The patient continues to be quite tearful throughout her visit today. Her daughter had in December. She is still trying to adjust to this. She is also having stressful relations with her granddaughter since her daughter has and this continues to be problematic for her as these were the only relatives that she has left. She feels that the holiday season that is going to be difficult this year. ALLERGIES: IODINE, CODEINE, SULFA and PENICILLIN. CURRENT LIST OF MEDICATIONS: Oxycodone 5/325 p.r.n., methadone 10 mg b.i.d., Flexeril 10 mg b.i.d. p.r.n., tamoxifen daily, verapamil daily, Ambien daily, Synthroid 150 mcg daily, gabapentin 300 mg. PQRS: 1. She has arthritic changes in her knees. Denies any rheumatoid arthritis. 2. Height is 5 feet 2 inches, weight is 213, BMI is 39. 3. Vital signs 136/75, pulse is 65, respirations 20, oxygen sat is 100. 4. Pain score is 8/10. 5. Denies dizziness. Does use a walker at all times. Has not fallen in the last 3 months. 6. The patient is not on any blood thinners, but does take medicine for hypertension. 7. Opioid therapy is greater than 6 weeks; therefore, an opioid signed contract is on the chart. Her risk assessment tool is low[place] [address] PAIN MANAGEMENT CONSULTATION Name: ARELY BEATTY Leonardo Room #: REG WHITLEY Soliz#: [id number] Admission: 06/07/19 Attend Phys: Nichole Liao Discharge: Date of : 42 Report #: [id number] 16/70. 8. Recreational drug use, she denies. She is a former smoker and occasionally drinks alcohol. According to the prescription monitoring system, the patient is filling appropriately for her medications. She is due for those today. She has no aberrant fills. She does safeguard her medications at all times. PHYSICAL EXAMINATION: GENERAL: This is alert and orientated, well-developed, obese white female, who appears her stated age. Her affect is depressed and tearful due to her daughter's passing. Her speech is fluent, rating her pain score at 8/10. HEENT: Normocephalic, atraumatic. Extraocular eye muscles are intact. Mucous membranes are moist. NECK: Without adenopathy or JVD. EXTREMITIES: Upper extremity strength judged to be 5/5 in all major muscle groups, slightly deconditioned in her lower extremity with muscle strength of 4/5. MUSCULOSKELETAL: The patient is without significant scoliosis, kyphosis or lordosis. She uses a walker today, complains of tenderness in her lumbosacral area that radiates into her bilateral legs to her knees. IMPRESSION: 1. Chronic pain in the lumbar area at L4-L5 dermatomal distribution with radiculopathy. 2. Depression secondary to daughter's passing. 3. Obesity. 4. Chronic opioid management under terms of written agreement. We reviewed the fact that opiate medications are being used to provide analgesia adequate to support activities of daily living, not attempting to achieve a specific pain score on the 0-10 Visual Analog Scale. The current opiate medications are providing sufficient analgesia to allow the patient to participate in activities of daily living. The patient is not exhibiting any aberrant behavior suggestive of drug diversion. The patient is not having any adverse reactions to medications. The patient is not suffering from daytime somnolence or mental acuity changes. The patient is managing opiate-induced constipation with appropriate wgmb-pho-bctehor agents and dietary considerations. The patient was counseled on concern for caution with operating a motor vehicle while using opiate medications. A physical exam was performed and the patient's functional status was evaluated. All patients with back pain were advised against the bed rest greater than 4 days and were advised to return to normal activities. Pain score assessment was noted and the treatment plan was reviewed with the patient. All current medications, both prescribed and OTC were reviewed and reconciled on the [address] [address] PAIN MANAGEMENT CONSULTATION Name: ARELY BEATTY Room #: REG [facility]#: [id number] Admission: 06/07/19 Attend Phys: Nichole Liao Discharge: Date of : 42 Report #: [id number] electronic medical record. Tobacco screening was accomplished and smoking cessation was advised when indicated. BMI was noted and diet/exercise modification was recommended for all patients following outside normal parameters. I reviewed with the patient today their responsibilities to safeguard prescription medications, reviewed their responsibility to utilize medications only as prescribed by the physician. They are to seek and receive pain medications only from 1 physician group ( [facility]). They are to use 1 pharmacy and keep the clinic informed if they change pharmacies. Their responsibilities include making followup visits in a timely fashion and to avoid abrupt discontinuation of medication usage. Their responsibilities further include bringing their medications (bottles from the pharmacy with residual pills) to the visit for possible confirmation of pill counts and the patient understands it is their responsibility to submit to random drug screens to ensure both that the medications prescribed are present, and that no other controlled substances are present. All prescriptions provided today were generated electronically. PLAN: 1. We discussed treatment options with the patient today. The patient finds her methadone quite beneficial in controlling her pain. We will refill this today quantity 60 of 10 mg methadone for today 4 and 8-week release as well as Percocet 5/325, #120 for today 4 and 8-week release. This does place her above the 50 morphine milliequivalent guidelines of the CDC at 80 , but it is a hardship for her to come; therefore, we allow her to come every 3 months. 2. We will refill her Flexeril 10 mg t.i.d. with 2 additional refills. These were electronically sent to the pharmacy. 3. The patient was seen by Dr. Jhony Perry today who also collaborated care. <ELECTRONICALLY SIGNED> By: Nichole Liao 06/07/19 1344 [id number] Nichole Liao /nt
== END ==
LOC: PAIN 09:39
DX: G89.29 Other chronic pain (principal); F32.9 Major depressive disorder, single episode, unspecified; E66.09 Other obesity due to excess calories; Z79.891 Long term (current) use of opiate analgesic

== ENCOUNTER → 2019-09-08 | Outpatient (CLI) | payer OTHER ==
[~2019-09-08] VITALS: Ht 157.5 cm; Wt 93.4 kg
[2019-09-08 11:11] VITALS: BP 115/77
--- NOTE | 2019-09-08 11:18 | NUR ---
Pain Clinic Assessment: 1. History of Osteoarthritis: KNEE LEGS History of Rheumatoid Arthritis: DENIES 2. Height: 5 ft. 2 in. 157.5 cm. Weight: 206.0 lb. oz. 93.441 kg. Patient's BMI: 37.7 3. Vital Signs: BP: 115/77 Pulse: 85 Resp: 22 Temp: 02 Sat: 96 ECG Mon: 4. Pain Intensity: 8 5. Fall Risk: Dizziness: N Needs help standing or walking: Y Fallen in the last 3 months: N Fall risk comments: USES WALKER 6. Patient on Blood Thinner: None 7. History of Hypertension: Y 8. Opioid Therapy greater than 6 weeks: Y Opiate Contract Signed: 03/11/16 9. Risk Assessment Tool Provided: LOW RISK 0/3 10. Functional Assessment Tool: 11. Recreational Drug Use: Never Drug Type: Tobacco Use: Former Smoker Tobacco Type: Amount or Packs/day: How Many Years: Alcohol Use: Yes Frequency: Special Occasions Quant:
--- NOTE | 2019-09-18 22:53 | HPC ---
[facility] [address] [address] PAIN MANAGEMENT CONSULTATION Name: ARELY BEATTY Room #: REG WHITLEY VillegasHowie#: [id number] Admission: 09/08/19 Attend Phys: Itz Perry MD Discharge: Date of : 42 Report #: [id number] THIS REPORT FOR: cc: Kervin Andre MD,Kervin Perry,Itz Nuñez MD ~ CC: Itz Andre DATE OF SERVICE: 09/08/2019 PRIMARY CARE PHYSICIAN: Kervin Andre MD CHIEF COMPLAINT: Has noticed some increased pain. My legs are somewhat weak. HISTORY: The patient is a 78-year-old female who has been followed in the pain clinic for a number of years because of chronic pain. She returns today for renewal of her medication. She rates her pain in the back area as an 8/10. Has pain in the legs and she rates this as a 9-10/10. She has returned today for renewal of her medication. She was considering an epidural injection. She states that she feels that she has a urinary tract infection and is being treated by her primary physician. She will return in the future for an injection after her urinary tract infection improves. Notes that standing, walking, lying down, can be problematic. Oftentimes, she repositions herself to decrease her level of discomfort. She still is suffering at the loss of her daughter. She is trying to improve relationships with other family members. ALLERGIES: PENICILLIN, SULFA. CURRENT MEDICATIONS: Oxycodone 5 mg 1 p.o. q.i.d., methadone 10 mg b.i.d., Flexeril 10 mg t.i.d., tamoxifen 10 mg, verapamil ER 120 mg b.i.d., Ambien 2.5 mg at bedtime, Synthroid 175 mcg, Neurontin 300 mg b.i.d. PAIN CLINIC ASSESSMENT AND PQRS: 1. The patient has pain involving her knees. She has noticed an increased amount of pain in the low back area and down in her legs. 2. Fall history: The patient has not fallen since we saw her last. She does note some instability. States that she sometimes uses her hands to steady herself when she walks through rooms by putting her hands on the door frames. 3. Blood thinner. The patient is not on a blood thinning medication. 4. Hypertension. The patient is being treated for hypertension. 5. Opioids greater than 6 weeks. The patient received medication from one source, pain clinic. 6. Risk assessment tool, low for opioid use. 7. Functional assessment tool . 8. Recreational drug use: [place] [address] PAIN MANAGEMENT CONSULTATION Name: ARELY BEATTY Leonardo [facility] #[facility] [id number] Admission: 09/08/19 Attend Phys: Itz Perry MD Discharge: Date of : 44 Report #: [id number] 9. Tobacco: The patient is a former smoker. 10. Alcohol: The patient rarely drinks alcoholic beverages. PHYSICAL EXAMINATION: GENERAL: The patient is a well-developed, well-nourished, somewhat obese white female, appears her stated age. She is alert and oriented x 3. Her affect is appropriate. Speech is fluent. Does still appear somewhat depressed because of her daughter's . HEENT: Normocephalic, atraumatic. Extraocular eye muscles intact. Sclerae nonicteric. Mucous membranes are moist. NECK: Without adenopathy or JVD. HEART: Regular. ABDOMEN: Protuberant. Bowel sounds present. LUNGS: Generally clear. EXTREMITIES: Upper extremity muscle strength judged to be 5-/5 for the major muscle groups in the upper extremity. Lower extremity muscle strength 4+/5 for the major muscle groups in the lower extremity. The patient is in wheelchair. MUSCULOSKELETAL: The patient without significant scoliosis, kyphosis or lordosis. IMPRESSION: 1. Chronic pain in lumbar area L4-L5 dermatomal distribution. Rates the pain in the back as an 8/10. 2. Depression secondary to loss of her daughter. 3. Tumultuous family dynamics with her grandkids. 4. Chronic back and tailbone pain. 5. Obesity, morbid. 6. Difficulty ambulating and uses a wheelchair. RECOMMENDATIONS: We discussed treatment options with the patient. At this juncture, we will continue with her medications. The patient feels the medications continue to add benefit. She is aware that opioid medications can become less effective as time goes on. Keeps her medications in a guarded area. We discussed the risks and benefits of an epidural steroid injection. The patient feels that she has urinary tract infection. She will continue to follow up with her primary physician. After the urinary tract infection has resolved, she will then consider an epidural steroid injection. A script for her medications of Percocet 5 mg 1 p.o. q.i.d. has been written. The patient will also continue with methadone 10 mg 1 p.o. b.i.d. She will call us if she has any concerns. [address] [address] PAIN MANAGEMENT CONSULTATION Name: ARELY BEATTY Room #: SAVANNA Soliz#: [id number] Admission: 09/08/19 Attend Phys: Itz Perry MD Discharge: Date of : 44 Report #: [id number] We would like to thank you for letting us participate in her care. Hope she continues to improve. We hope that her family dynamics improve. <ELECTRONICALLY SIGNED> By: Itz Perry MD 09/18/19 [id number] Itz Perry MD /IVORY
== END ==
LOC: PAIN 06:52
DX: M54.5 Low back pain (principal); G89.29 Other chronic pain; F32.9 Major depressive disorder, single episode, unspecified; E66.01 Morbid (severe) obesity due to excess calories; Z79.899 Other long term (current) drug therapy

== ENCOUNTER → 2019-12-06 | Outpatient (CLI) | payer OTHER ==
[~2019-12-06] VITALS: Ht 162.6 cm; Wt 86.6 kg
--- NOTE | ~2019-12-06 | HPC ---
[facility] [place] [address] PAIN MANAGEMENT CONSULTATION Name: ARELY BEATTY Room #: REG WHITLEY Villegas.#: [id number] Admission: 12/06/19 Attend Phys: Itz ePrry MD Discharge: Date of : 44 Report #: [id number] THIS REPORT FOR: cc: Kervin Andre MD,Kervin Perry,Itz Nuñez MD ~ CC: Itz Andre MD DATE OF SERVICE: 12/06/2019 CHIEF COMPLAINT: Continued lumbar pain. HISTORY: The patient is a 79-year-old female who has been followed in the pain clinic because of chronic back pain. She has undergone epidural steroid injections in the past. She has pain in her low back with pain radiating down into her legs. She is here for evaluation of her medications. She has chronic lymphedema in the lower extremities on both sides. She rates her pain as a 9/10. Walking, standing, and lying down can be problematic. She notes that her medications are helpful. Repositioning can be beneficial. She notes that the pain limits her ability to exercise. She has noted an improvement in her relationship with her granddaughter. She is happy about this. ALLERGIES: PENICILLIN AND SULFA. CURRENT MEDICATIONS: Oxycodone 5 mg 1 p.o. q.i.d., methadone 10 mg b.i.d., Flexeril 10 mg t.i.d., tamoxifen 10 mg, verapamil ER 120 mg b.i.d., Ambien 2.5 mg at bedtime, Synthroid 175 mcg, and Neurontin 300 mg b.i.d. PAIN CLINIC ASSESSMENT/PQRS: 1. The patient has pain and discomfort in her knees. She also has pain down in her legs. She complains of some discomfort in her hands with soreness. 2. The patient is not being treated for rheumatoid arthritis. 3. Fall history: The patient did slide off the bed. She had this unfortunate episode about 2 months ago. She states that the firemen were called. They came to help her. 4. Blood thinner. The patient is not on a blood thinning medication. 5. Hypertension. The patient is being treated for hypertension. 6. Opioids greater than 6 weeks. The patient received medication from one source the pain clinic. 7. Risk assessment tool, low for opioid use. 8. Functional assessment tool . 9. Recreational drug use. The patient denies. 10. Tobacco: The patient is a former smoker. 11. The [place] [address] PAIN MANAGEMENT CONSULTATION Name: ARELY BEATTY Room #: REG [facility]#: [id number] Admission: 12/06/19 Attend Phys: Itz Perry MD Discharge: Date of : 44 Report #: [id number] PHYSICAL EXAMINATION: GENERAL: The patient is a well-developed, well-nourished, somewhat obese white female, appears her stated age. She is alert and oriented x 3. Her affect is appropriate. Speech is fluent. HEENT: Normocephalic, atraumatic. She is less depressed than when I saw her last time. She is beginning to normalize her relationship with her grandchildren. HEENT: Normocephalic, atraumatic. Extraocular eye muscles intact. Sclerae nonicteric. Mucous membranes are moist. NECK: Without adenopathy or JVD. HEART: Regular rate, distant. ABDOMEN: Protuberant. LUNGS: Generally clear. EXTREMITIES: Upper extremity muscle strength judged to be 5/5 for the major muscle groups in the upper extremity. The patient has some pain and discomfort in her hands. The patient is in a wheelchair. The patient without significant scoliosis, kyphosis, or lordosis. IMPRESSION: 1. Chronic pain in the lumbar area at L4-L5 in the dermatomal distribution. 2. Improved in relationship with granddaughter. 3. Chronic back and tailbone pain. 4. Obesity/morbid. 5. Difficulty ambulating and uses a wheelchair. RECOMMENDATIONS: We discussed treatment options with the patient. At this juncture, we will continue with her medications. She is aware that the COVID-19 virus is problematic. She has been staying at home. She feels that her medications are helpful. We have discussed the risks and benefits of steroid use. We have discussed the problems with chronic opioid medications. As time goes on they can become less effective. She feels that the medications are helpful. She continues to stay as active as possible. A script for her medications has been rewritten. She will continue with methadone 10 mg 1 p.o. b.i.d. She will also continue with Percocet 5 mg 1 p.o. q.i.d. She has been provided a script for Flexeril 10 mg 1 p.o. t.i.d. as needed. The patient will call us if she has any concerns. We are glad that she and her granddaughter are beginning to normalize their relationship. This became more problematic after the of her daughter. [facility] [address] [place] [address] PAIN MANAGEMENT CONSULTATION Name: ARELY BEATTY Room #: REG WHITLEY Villegas.#: [id number] Admission: 12/06/19 Attend Phys: Itz Perry MD Discharge: Date of : 44 Report #: [id number] We would like to thank you for letting us participate in her care. We hope she continues to improve. By: [id number] Itz Perry MD /IVORY
[2019-12-06 12:54] VITALS: BP 110/52
--- NOTE | 2019-12-06 12:55 | NUR ---
Pain Clinic Assessment: 1. History of Osteoarthritis: KNEE LEGS History of Rheumatoid Arthritis: DENIES 2. Height: 5 ft. 4 in. 162.6 cm. Weight: 191.0 lb. oz. 86.637 kg. Patient's BMI: 32.8 3. Vital Signs: BP: 110/52 Pulse: 69 Resp: 18 Temp: 02 Sat: 96 ECG Mon: 4. Pain Intensity: 9 5. Fall Risk: Dizziness: N Needs help standing or walking: N Fallen in the last 3 months: N Fall risk comments: USES WALKER 6. Patient on Blood Thinner: None 7. History of Hypertension: Y 8. Opioid Therapy greater than 6 weeks: Y Opiate Contract Signed: 03/11/16 9. Risk Assessment Tool Provided: LOW RISK 0/3 10. Functional Assessment Tool: 11. Recreational Drug Use: Never Drug Type: Tobacco Use: Former Smoker Tobacco Type: Cigarettes Amount or Packs/day: 1 How Many Years: 30 Alcohol Use: Yes Frequency: Weekly Quant: LIQUOR
== END ==
LOC: PAIN 06:50
DX: E66.01 Morbid (severe) obesity due to excess calories (principal); T78.49XA Other allergy, initial encounter; T36.0X5A Adverse effect of penicillins, initial encounter; Y92.89 Other specified places as the place of occurrence of the external cause; X58.XXXA Exposure to other specified factors, initial encounter

== ENCOUNTER → 2020-02-07 | Outpatient (CLI) | payer OTHER ==
[~2020-02-07] VITALS: Ht 162.6 cm; Wt 87.6 kg
[2020-02-07 12:43] VITALS: BP 123/74
--- NOTE | 2020-02-07 12:58 | NUR ---
Pain Clinic Assessment: 1. History of Osteoarthritis: KNEE LEGS History of Rheumatoid Arthritis: DENIES 2. Height: 5 ft. 4 in. 162.6 cm. Weight: 193.2 lb. oz. 87.635 kg. Patient's BMI: 33.1 3. Vital Signs: BP: 123/74 Pulse: 97 Resp: 20 Temp: 02 Sat: 100 ECG Mon: 4. Pain Intensity: 9 WHEN UP 5. Fall Risk: Dizziness: N Needs help standing or walking: Y Fallen in the last 3 months: N Fall risk comments: USES WALKER 6. Patient on Blood Thinner: None 7. History of Hypertension: Y 8. Opioid Therapy greater than 6 weeks: Y Opiate Contract Signed: 03/11/16 9. Risk Assessment Tool Provided: LOW RISK 0/3 10. Functional Assessment Tool: 11. Recreational Drug Use: Never Drug Type: Tobacco Use: Former Smoker Tobacco Type: Amount or Packs/day: How Many Years: Alcohol Use: Yes Frequency: Quant:
--- NOTE | 2020-02-08 11:25 | HPC ---
[facility] [address] [address] PAIN MANAGEMENT CONSULTATION Name: ARELY BEATTY Room #: REG [facility].#: [id number] Admission: 02/07/20 Attend Phys: Nichole Liao Discharge: Date of : 44 Report #: [id number] THIS REPORT FOR: cc: Kervin Andre MD, Robert MD Hocker,Nichole PRITCHARD ~ CC: Michael Perry MD DATE OF SERVICE: 02/07/2020 CHIEF COMPLAINT: Low back pain and lymphedema. HISTORY OF PRESENT ILLNESS: This is a very pleasant 79-year-old who returns to the pain clinic today for her ongoing low back issues that we do treat with opioid medications. She does report that she has ongoing pain in her legs as well and she has been having increased pain in her legs due to her lymphedema. Today, she is reporting a pain score of 9/10 when she is up and moving. She feels that her medications are beneficial as long as she repositions herself. She does use a walker at all times. She denies problems with constipation or daytime somnolence as a result of her opioid medications. The patient does report that she was recently at [facility] and at a rehabilitation center for her chronic lymphedema issues that she was experiencing in both legs. She was started on a diuretic and physical therapy. She reports that she lost significant amount of weight when she was discharged from the hospital. At that time, her weight was 181. Currently, today she is 193. Her left lower extremity is quite edematous. She does report to me that she has a wound on the posterior left leg that she is wrapped with gauze. She is going to have a TeleMed appointment tomorrow with Dr. Andre regarding this issue. She believes she needs to see a payroll specialist for this problem. She also believes she may need to increase her diuretics since her weight has increased 10 pounds since last week. ALLERGIES: IODINE, CODEINE, SULFA AND PENICILLIN. CURRENT LIST OF MEDICATIONS: Oxycodone 5/325 q.i.d. p.r.n., methadone 10 mg b.i.d., Flexeril, tamoxifen, verapamil, Ambien, torsemide, Synthroid, and gabapentin. PQRS: 1. She has pain and discomfort in her knees and hands. Denies being treated for rheumatoid arthritis. 2. Height is 5 feet 4 inches, weight is 193, BMI is 33. 3. Vital signs 123/74, pulse is 97, respirations 20, oxygen sat is 100. 4. Pain score is 9/10. 5. Denies dizziness. Does use a walker at all times and [place] [address] PAIN MANAGEMENT CONSULTATION Name: ROGERIOARELY Room #: REG WHITLEY Soliz#: [id number] Admission: 02/07/20 Attend Phys: Nichole Liao Discharge: Date of : 44 Report #: [id number] last 3 months. 6. The patient is not on any blood thinners, but does have a history of hypertension. Her opioid therapy is greater than 6 weeks; therefore, an opioid signed contract is on the chart. Risk assessment is low. Functional assessment . 7. Recreational drug use, she denies. She is a former smoker and occasionally drinks alcohol. According to the prescription monitoring system, she is due to fill her medications today. She did receive a small script of oxycodone upon discharge from her rehab facility. She has 8-week prescriptions from Dr. Perry waiting at the pharmacy to be filled. Her morphine milliequivalent according to the CDC guidelines is 90. PHYSICAL EXAMINATION: GENERAL: This is alert and orientated, well-developed, well-nourished, slightly obese white female who appears her stated age, placing her current pain score today at 9/10. HEENT: Normocephalic, atraumatic. Sclerae are nonintrinsic. Mucous membranes are moist. She is wearing a mask. NECK: Without adenopathy or JVD. EXTREMITIES: She has 3+ edema in her left lower extremity. She does state she has an ulcer that is draining. She has it currently wrapped with gauze and an Ld bandage. I did not visualize this today. She states it is tender to the touch on her left anterior calf. She has pain in her lumbar spine that radiates into her legs. She is without significant scoliosis, kyphosis or lordosis. IMPRESSION: 1. Chronic pain in the lumbar spine. 2. Lumbar radiculopathy, L4-L5 dermatomal distribution. 3. Obesity. 4. Chronic lymphedema with recent hospitalization. 5. Opioid medication management under written agreement. We reviewed the fact that opiate medications are being used to provide analgesia adequate to support activities of daily living, not attempting to achieve a specific pain score on the 0-10 Visual Analog Scale. The current opiate medications are providing sufficient analgesia to allow the patient to participate in activities of daily living. The patient is not exhibiting any aberrant behavior suggestive of drug diversion. The patient is not having any adverse reactions to medications. The patient is not suffering from daytime somnolence or mental acuity changes. The patient is managing opiate-induced constipation with appropriate wgng-apo-mxibrrh agents and dietary considerations. The patient was counseled on concern for caution with operating a motor vehicle while using opiate medications. [facility] [address] [place] [address] PAIN MANAGEMENT CONSULTATION Name: ARELY BEATTY Room #: REG WHITLEY Martínez#: [id number] Admission: 02/07/20 Attend Phys: Nichole FRANCHESKA Liao Discharge: Date of : 42 Report #: [id number] PLAN: 1. We discussed treatment options with the patient today. I encouraged the patient to call her primary care doctor due to increasing edema in her left lower extremity. She does report she has a TeleMed appointment tomorrow. I encouraged her to make sure he is able to visualize her edema in her left lower extremity and to have her wound/ulceration open to air, so he may visualize that as well on the TeleMed appointment. The patient verbalized understanding. 2. We will refill her opioid medications. I instructed her that she does have an 8-week prescription at her pharmacy that we have called to allow them to fill today, which is due. Dr. Jhony Perry will fill a 4-week and 8-week prescriptions for her. I explained that since she is here a month early, we are unable to give her more than 3 months' supply at one time. The patient understands. Scripts sent for Percocet 5/325, #120, and methadone 10 mg b.i.d., #60, for 4 and 8-week release. 3. We will continue her on her Flexeril as well. She does take this as needed for muscle spasms. 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 4. The patient is seen in collaboration with Dr. Joaquin Perry. The patient will return in 3 months. <ELECTRONICALLY SIGNED> By: Nichole Liao 02/08/20 [id number] Nichole Liao /nt
== END ==
LOC: PAIN 06:53
PROVIDERS: ATTEND Clinical Nurse Specialist Adult Health
DX: M54.16 Radiculopathy, lumbar region (principal); I89.0 Lymphedema, not elsewhere classified; E66.9 Obesity, unspecified; F11.20 Opioid dependence, uncomplicated; Z79.899 Other long term (current) drug therapy; Z88.8 Allergy status to other drugs, medicaments and biological substances

== ENCOUNTER → 2020-05-08 | Outpatient (CLI) | payer OTHER ==
--- NOTE | 2020-05-09 07:59 | HPC ---
[facility] [address] [place] [address] PAIN MANAGEMENT CONSULTATION Name: ARELY BEATTY Room #: REG WHITLEY Martínez#: [id number] Admission: 05/08/20 Attend Phys: Nichole Liao Discharge: Date of : 44 Report #: [id number] CC: Nichole Andre MD DATE OF SERVICE: 05/08/2020 This is a telemedicine appointment due to the patient has COVID and at home, that she has consented to. Fortunately, this is a telephone conversation since she does not have audiovisual capabilities. This visit was from 8:30-8:48 CHIEF COMPLAINT: Low back pain and lymphedema. HISTORY OF PRESENT ILLNESS: This is a telemedicine conference. I am speaking with the patient via the telephone. She reports that she has been recently hospitalized with pneumonia and COVID in March or April. She is still recovering very weak at home. She reports she did not need to be placed on the ventilator, several of her family members were sick as well. The patient states that during this time, she has been able to decrease her methadone, now currently only taking one tablet a day along with her oxycodone and Flexeril. She is requesting those meds today. The patient reports that her pain is an 8/10 in her lower back and legs. She reports that her left leg is slightly swollen from her lymphedema today. She has not been very active since she has been sick, which normally does flare her pain. She denies any problems with constipation or daytime somnolence. ALLERGIES: IODINE, CODEINE, SULFA AND PENICILLIN. MEDICATIONS: Oxycodone 5/325, Flexeril, verapamil, methadone 10 mg daily, Ambien, tamoxifen, Synthroid and gabapentin. PQRS: 1. She has a history of osteoarthritic changes in her back and legs. Denies any rheumatoid arthritis. 2. Height, weight and vital signs were deferred due to a Telemed appointment. 3. Pain score is 8/10. 4. Denies dizziness. Does need assistance with ambulation. She uses a walker. Has not fallen in the last 3 months. 5. She is not on any blood thinners, but does take medicine for hypertension. 6. Her opioid therapy is greater than 6 weeks; therefore, an opioid signed contract is on the chart. Risk assessment is low. Functional assessment . 7. Recreational drug use, she denies. She is not a smoker and does not drink alcohol. According to the prescription monitoring system, she is due to fill her medications today. Her morphine milliequivalent was 90, but we are decreasing her methadone, so it will be 60 morphine milliequivalents. PHYSICAL EXAMINATION: Deferred. This is a review of systems. The patient is alert and oriented, answering all my questions appropriately. She is a good historian. She reports having a nonproductive cough. Pain is in her lower back radiating down her legs with edema noted in her left lower extremity from her lymphedema. IMPRESSION: 1. Chronic pain in the lumbar spine. 2. Lumbar radiculopathy at the L4-L5 dermatomal distribution. 3. Obesity. 4. Chronic lymphedema. 5. Opioid medication management under terms of written agreement. We reviewed the fact that opiate medications are being used to provide analgesia adequate to support activities of daily living, not attempting to achieve a specific pain score on the 0-10 Visual Analog Scale. The current opiate medications are providing sufficient analgesia to allow the patient to participate in activities of daily living. The patient is not exhibiting any aberrant behavior suggestive of drug diversion. The patient is not having any adverse reactions to medications. The patient is not suffering from daytime somnolence or mental acuity changes. The patient is managing opiate-induced constipation with appropriate gehu-jkx-qimfkas agents and dietary considerations. The patient was counseled on concern for caution with operating a motor vehicle while using opiate medications. PLAN: 1. We discussed treatment options with the patient today. We are doing a telemedicine appointment due to the recent hospitalization for COVID. Explained to the patient that we would like to see her in 1 month when she is filling better, so therefore, Dr. Perry will send one month of medications for her. The patient verbalizes understanding. 2. The patient reports she has been taking less methadone averaging only one tablet a day. Based on this, we will decrease her to 30 tablets in a month and instructing the patient to take 1 tablet a day or half a tablet in the morning and half a tablet at night. Scripts sent for 30 pills of 10 mg. 3. We will continue her on her oxycodone 5/325, #120. This was set electronically. 4. Flexeril 10 mg, #90 p.r.n. muscle spasms, was sent electronically for 1 month as well. The patient to return in 1 month. The patient will call for an appointment. She is seen today in collaboration with Dr. Perry. <ELECTRONICALLY SIGNED> By: Nichole Liao 05/09/20 [id number] Nichole Liao /baltazar
== END ==
LOC: TELEPC 06:47
PROVIDERS: ATTEND Clinical Nurse Specialist Adult Health
DX: M54.16 Radiculopathy, lumbar region (principal); I89.0 Lymphedema, not elsewhere classified; G89.29 Other chronic pain; E66.9 Obesity, unspecified; F11.20 Opioid dependence, uncomplicated; Z88.8 Allergy status to other drugs, medicaments and biological substances; Z79.899 Other long term (current) drug therapy

== ENCOUNTER → 2020-08-09 | Outpatient (CLI) | payer OTHER ==
[~2020-08-09] VITALS: Ht 162.6 cm; Wt 81.6 kg
[~2020-08-09] MED LIST changes: +ACCU-CHEK1 EACH INJECTION; +ANTIFUNGAL30 GM TOP; +ANUSOL-HC30 GM TOP; +DRONABINOL5 MG PO; +FERROUS SULFATE PO; +FOLIC ACID1 MG PO; +FUROSEMIDE 20 M20 MG PO; +KRISTALOSE20 GM PO; +LEVOTHYROXINE175 MC1 PO; +MELATIN3 MG PO; +NEURONTIN 300M300 M2 PO; +PROAIR HFA8.5 GM INH; +PROTONIX40 M2 PO; -SYNTHROID150 MCG PO; +TOPROL XL25 MG PO; +TYLOPHEN500 MG PO; +ZOFRAN4 MG PO; +[UNRECOGNIZED DRUG - OTHER] PO
[2020-08-09 12:45] VITALS: BP 119/45
--- NOTE | 2020-08-09 12:54 | NUR ---
Pain Clinic Assessment: 1. History of Osteoarthritis: KNEE LEGS History of Rheumatoid Arthritis: DENIES 2. Height: 5 ft. 4 in. 162.6 cm. Weight: 180.0 lb. oz. 81.648 kg. Patient's BMI: 30.9 3. Vital Signs: BP: 119/45 Pulse: 64 Resp: 18 Temp: 02 Sat: 98 ECG Mon: 4. Pain Intensity: 8/9 WHEN UP 5. Fall Risk: Dizziness: N Needs help standing or walking: Y Fallen in the last 3 months: N Fall risk comments: USES WALKER 6. Patient on Blood Thinner: None 7. History of Hypertension: Y 8. Opioid Therapy greater than 6 weeks: Y Opiate Contract Signed: 03/11/16 9. Risk Assessment Tool Provided: LOW RISK 0/3 10. Functional Assessment Tool: 11. Recreational Drug Use: Never Drug Type: Tobacco Use: Former Smoker Tobacco Type: Amount or Packs/day: How Many Years: Alcohol Use: Yes Frequency: Quant:
== END ==
LOC: PAIN 07-26 06:59
PROVIDERS: ATTEND Anesthesiology Pain Medicine
DX: M54.16 Radiculopathy, lumbar region (principal); I89.0 Lymphedema, not elsewhere classified; G89.29 Other chronic pain; E66.9 Obesity, unspecified; Z79.891 Long term (current) use of opiate analgesic; Z86.16 Personal history of COVID-19

== ENCOUNTER → 2020-11-06 | Outpatient (CLI) | payer OTHER | LOC: TELEPC 10:07 | PROVIDERS: ATTEND Anesthesiology Pain Medicine | DX: Z76.0 Encounter for issue of repeat prescription (principal); I89.0 Lymphedema, not elsewhere classified; E66.9 Obesity, unspecified; Z90.710 Acquired absence of both cervix and uterus; Z90.49 Acquired absence of other specified parts of digestive tract; Z86.16 Personal history of COVID-19; Z79.899 Other long term (current) drug therapy; Z88.5 Allergy status to narcotic agent; Z88.0 Allergy status to penicillin; Z88.2 Allergy status to sulfonamides ==

== ENCOUNTER → 2021-01-31 | Outpatient (CLI) | payer OTHER ==
[~2021-01-31] VITALS: Ht 162.6 cm; Wt 95.3 kg
[2021-01-31 10:36] VITALS: BP 136/53
--- NOTE | 2021-01-31 10:59 | NUR ---
Pain Clinic Assessment: 1. History of Osteoarthritis: KNEE LEGS History of Rheumatoid Arthritis: DENIES 2. Height: 5 ft. 4 in. 162.6 cm. Weight: 210.0 lb. oz. 95.256 kg. Patient's BMI: 36.0 3. Vital Signs: BP: 136/53 Pulse: 76 Resp: 22 Temp: 02 Sat: 99 ECG Mon: 4. Pain Intensity: 8 5. Fall Risk: Dizziness: N Needs help standing or walking: Y Fallen in the last 3 months: N Fall risk comments: USES WALKER 6. Patient on Blood Thinner: None 7. History of Hypertension: Y 8. Opioid Therapy greater than 6 weeks: Y Opiate Contract Signed: 03/11/16 9. Risk Assessment Tool Provided: LOW RISK 0/3 10. Functional Assessment Tool: 11. Recreational Drug Use: Never Drug Type: Tobacco Use: Former Smoker Tobacco Type: Amount or Packs/day: How Many Years: Alcohol Use: Yes Frequency: Quant:
== END ==
LOC: PAIN 06:49
PROVIDERS: ATTEND Anesthesiology Pain Medicine
DX: G89.29 Other chronic pain (principal); M54.16 Radiculopathy, lumbar region; I10 Essential (primary) hypertension; I89.0 Lymphedema, not elsewhere classified; M79.606 Pain in leg, unspecified; M79.603 Pain in arm, unspecified; E66.9 Obesity, unspecified; M17.0 Bilateral primary osteoarthritis of knee; F10.10 Alcohol abuse, uncomplicated; Z98.61 Coronary angioplasty status; Z90.49 Acquired absence of other specified parts of digestive tract; Z90.710 Acquired absence of both cervix and uterus; Z88.5 Allergy status to narcotic agent; Z88.0 Allergy status to penicillin; Z88.2 Allergy status to sulfonamides; Z88.8 Allergy status to other drugs, medicaments and biological substances; Z79.891 Long term (current) use of opiate analgesic; Z79.899 Other long term (current) drug therapy; Z86.16 Personal history of COVID-19; Z87.891 Personal history of nicotine dependence

== ENCOUNTER → 2021-04-04 | Outpatient (CLI) | payer OTHER ==
[~2021-04-04] VITALS: Ht 162.6 cm; Wt 92.9 kg
[~2021-04-04] MED LIST changes: +NEURONTIN300 MG PO
[2021-04-04 12:29] VITALS: BP 187/76
--- NOTE | 2021-04-04 12:38 | NUR ---
Pain Clinic Assessment: 1. History of Osteoarthritis: KNEE LEGS History of Rheumatoid Arthritis: DENIES 2. Height: 5 ft. 4 in. 162.6 cm. Weight: 204.8 lb. oz. 92.897 kg. Patient's BMI: 35.1 3. Vital Signs: BP: 187/76 Pulse: 57 Resp: 16 Temp: 02 Sat: 99 ECG Mon: 4. Pain Intensity: 9 5. Fall Risk: Dizziness: N Needs help standing or walking: N Fallen in the last 3 months: N Fall risk comments: USES WALKER 6. Patient on Blood Thinner: None 7. History of Hypertension: Y 8. Opioid Therapy greater than 6 weeks: Y Opiate Contract Signed: 03/11/16 9. Risk Assessment Tool Provided: LOW RISK 0/3 10. Functional Assessment Tool: 11. Recreational Drug Use: Never Drug Type: Tobacco Use: Former Smoker Tobacco Type: Amount or Packs/day: How Many Years: Alcohol Use: Yes Frequency: Weekly Quant: 2 TO 3
== END ==
LOC: PAIN 07:01
PROVIDERS: ATTEND Anesthesiology Pain Medicine
DX: G89.29 Other chronic pain (principal); M54.16 Radiculopathy, lumbar region; I89.0 Lymphedema, not elsewhere classified; I10 Essential (primary) hypertension; E66.9 Obesity, unspecified; Z79.899 Other long term (current) drug therapy; Z88.8 Allergy status to other drugs, medicaments and biological substances; Z90.49 Acquired absence of other specified parts of digestive tract; Z90.710 Acquired absence of both cervix and uterus; Z88.1 Allergy status to other antibiotic agents; Z88.0 Allergy status to penicillin

== ENCOUNTER → 2021-07-09 | Outpatient (CLI) | payer OTHER ==
[~2021-07-09] VITALS: Ht 162.6 cm; Wt 90.0 kg
[2021-07-09 08:55] VITALS: BP 138/76
--- NOTE | 2021-07-09 09:11 | NUR ---
Pain Clinic Assessment: 1. History of Osteoarthritis: KNEE LEGS History of Rheumatoid Arthritis: DENIES 2. Height: 5 ft. 4 in. 162.6 cm. Weight: 198.4 lb. oz. 89.994 kg. Patient's BMI: 34.0 3. Vital Signs: BP: 138/76 Pulse: 57 Resp: 18 Temp: 02 Sat: 100 ECG Mon: 4. Pain Intensity: 8 5. Fall Risk: Dizziness: N Needs help standing or walking: Y Fallen in the last 3 months: Y Fall risk comments: USES WALKER 6. Patient on Blood Thinner: None 7. History of Hypertension: Y 8. Opioid Therapy greater than 6 weeks: Y Opiate Contract Signed: 03/11/16 9. Risk Assessment Tool Provided: LOW RISK 0/3 10. Functional Assessment Tool: 11. Recreational Drug Use: Never Drug Type: Tobacco Use: Former Smoker Tobacco Type: Amount or Packs/day: How Many Years: Alcohol Use: Yes Frequency: Quant:
== END ==
LOC: PAIN 06:54
PROVIDERS: ATTEND Clinical Nurse Specialist Adult Health
DX: M54.16 Radiculopathy, lumbar region (principal); M79.661 Pain in right lower leg; M79.662 Pain in left lower leg; I89.0 Lymphedema, not elsewhere classified; E66.01 Morbid (severe) obesity due to excess calories; Z86.16 Personal history of COVID-19; Z87.891 Personal history of nicotine dependence; Z88.0 Allergy status to penicillin; Z88.8 Allergy status to other drugs, medicaments and biological substances; Z79.899 Other long term (current) drug therapy